=== PATIENT | male | born 1970 | race Caucasian/White ===

== ENCOUNTER 2023-02-09 19:49 | Emergency (ER) | payer OTHER | END 2023-02-10 02:06 | disposition left against medical advice (07) | LOC: ER 19:58 | DX: Z53.21 Procedure and treatment not carried out due to patient leaving prior to being seen by health care provider (principal) ==

== ENCOUNTER 2023-06-30 16:13 | Emergency (ER) | payer OTHER | END 2023-06-30 16:39 | disposition left against medical advice (07) | LOC: ER 16:16 | DX: R52 Pain, unspecified (principal); Z53.21 Procedure and treatment not carried out due to patient leaving prior to being seen by health care provider ==